=== PATIENT | male | born 1975 | race Caucasian/White ===

== ENCOUNTER 2021-03-09 09:52 | Inpatient (IN) | payer OTHER ==
[~2021-03-09] VITALS: Ht 172.7 cm; Wt 96.2 kg
[2021-03-09 12:03] LABS: BASOPHIL 0.9 % (0-2); EOSINOPHIL 1.2 % (0-5); HGB 19.5 g/dl (13.2-18.0); LYMPHOCYTE 22.9 % (15-48); MCH 31.8 pg (25.0-31.0); MCHC 35.5 g/dL (32.0-36.0); MCV 89.6 fL (78.0-100.0); MPV 10.9 fL (6.0-9.5); NEUTROPHIL 68.8 % (41-80); NRBC 0; PLT 318 K/uL (150-400); RBC 6.14 M/uL (4.70-6.00); RDW 11.5 % (11.5-14.0); WBC 9.3 K/uL (4.0-10.5)
[2021-03-09 12:16] LABS: ALBUMIN 4.4 g/dL (3.4-5.0); BILIRUBIN - TOTAL 0.9 mg/dL (0.2-1.0); BUN/CREAT RATIO (CALC) 23.1 RATIO; CREATININE 1.21 mg/dL (0.67-1.17); GLOBULIN (CALCULATION) 4.1 g/dL; POTASSIUM 5.2 mmol/L (3.5-5.1); TOTAL PROTEIN 8.5 g/dL (6.4-8.2)
[2021-03-09 13:48] LABS: CORONAVIRUS 2019 SARS-COV-2 NEGATIVE (NEGATIVE); INFLUENZA A NAA NEGATIVE (NEGATIVE)
[2021-03-09 13:51] LABS: BILIRUBIN NEGATIVE (NEGATIVE); BLOOD TRACE-INTACT Ery/uL (NEGATIVE); CLARITY CLEAR (CLEAR); COLOR YELLOW (YELLOW); GLUCOSE (U) 3+ mg/dL (NORMAL); LEUKOCYTES NEGATIVE Leu/uL (NEGATIVE); NITRITE NEGATIVE (NEGATIVE); PROTEIN NEGATIVE (NEGATIVE); SPECIFIC GRAVITY 1.015 (1.001-1.030); UROBILINOGEN 0.2 mg/dL (0.2-1.0); pH 5.5 (5.0-9.0)
[2021-03-09 14:02] LABS: SQUAMOUS EPITHELIAL CELLS RARE; URINARY RBC RARE
[2021-03-09] MEDS ORDERED: METFORMIN HCL500 MG PO (15:11)
[2021-03-09] MEDS ORDERED: CRESTOR10 M1 PO (15:12)
[2021-03-09] MEDS ORDERED: AMLODIPINE-BEN1 EAC4 PO (15:12)
[2021-03-09] MEDS ORDERED: HCTZ12.5 MG PO (15:13)
[2021-03-09] MEDS ORDERED: PRILOSEC20 MG PO (15:13)
[2021-03-09 15:43] LABS: MAGNESIUM 2.7 mg/dL (1.8-2.4)
[2021-03-09 17:01] LABS: BUN/CREAT RATIO (CALC) 22.4 RATIO; CREATININE 1.16 mg/dL (0.67-1.17); POTASSIUM 4.4 mmol/L (3.5-5.1)
[2021-03-09 21:30] LABS: BUN/CREAT RATIO (CALC) 23.3 RATIO; CREATININE 0.9 mg/dL (0.67-1.17); POTASSIUM 4.2 mmol/L (3.5-5.1)
[2021-03-10 06:12] LABS: BASOPHIL 0.8 % (0-2); EOSINOPHIL 3.1 % (0-5); HCT 40.4 % (42.0-52.0); HGB 14.6 g/dl (13.2-18.0); LYMPHOCYTE 37.3 % (15-48); MCH 31.7 pg (25.0-31.0); MCHC 36.1 g/dL (32.0-36.0); MCV 87.8 fL (78.0-100.0); MONOCYTE 5.8 % (0-12); MPV 10.6 fL (6.0-9.5); NEUTROPHIL 52.8 % (41-80); NRBC 0; PLT 224 K/uL (150-400); RDW 11.3 % (11.5-14.0); WBC 8.6 K/uL (4.0-10.5)
[2021-03-10 06:38] LABS: BUN/CREAT RATIO (CALC) 18.5 RATIO; CREATININE 0.92 mg/dL (0.67-1.17); MAGNESIUM 2.2 mg/dL (1.8-2.4); PHOSPHORUS 1.3 mg/dL (2.6-4.7); POTASSIUM 4.2 mmol/L (3.5-5.1)
--- NOTE | 2021-03-10 13:44 | NUR ---
03/10/21 Mr. العراقي, his girlfriend, and 2 of his 5 children (ages 9 and 5) share a home together. They are supported by the children's [facility] and [facility]. He owns his own mobile home and does not have a mortgage. He has a support system through his mother and girlfriend. - Mr. العراقي has a dx of diabetes. - Wood Smith is the PCP. - Mr. العراقي was provided with the following resources: [employer] application, food [employer], financial community resources, and community diabetic support / education.
[2021-03-11 06:18] LABS: BASOPHIL 0.7 % (0-2); HCT 36.3 % (42.0-52.0); HGB 12.9 g/dl (13.2-18.0); LYMPHOCYTE 40.5 % (15-48); MCH 31.8 pg (25.0-31.0); MCHC 35.5 g/dL (32.0-36.0); MCV 89.4 fL (78.0-100.0); MONOCYTE 6.6 % (0-12); MPV 10.5 fL (6.0-9.5); NEUTROPHIL 49.9 % (41-80); NRBC 0; PLT 182 K/uL (150-400); RBC 4.06 M/uL (4.70-6.00); RDW 11.3 % (11.5-14.0); WBC 7.1 K/uL (4.0-10.5)
[2021-03-11 06:44] LABS: BUN/CREAT RATIO (CALC) 16.5 RATIO; CREATININE 0.91 mg/dL (0.67-1.17); PHOSPHORUS 1.8 mg/dL (2.6-4.7); POTASSIUM 4.1 mmol/L (3.5-5.1)
--- NOTE | 2021-03-11 11:09 | NUR ---
PT HAD A ZOOM MEETING WITH [employer] SUPERVIS[employer] MAX FOSTER RN TODAY. SHE DID ANSWER A LOT OF QUESTIONS HE HAD ABOUT DIET AND NUTRITION. SHE ALSO PUT IN A CONSULT FOR H[employer] DECK [employer]OVER
[2021-03-11] MEDS ORDERED: HUMULIN R100 UNIT/2 SC (14:44)
[2021-03-11] MEDS ORDERED: HUMALOG100 UNIT/1 SC (14:44)
[2021-03-11] MEDS ORDERED: SEMGLEE100 UNIT/1 SC (14:44)
== END 2021-03-11 15:10 | disposition home or self-care (01) | DRG 638 ==
LOC: FER 09:52 → FICU 13:50
PROVIDERS: Emergency Medicine; Internal Medicine; Nurse Practitioner Family; ADMIT Internal Medicine
DX: E11.10 Type 2 diabetes mellitus with ketoacidosis without coma (principal); E87.1 Hypo-osmolality and hyponatremia; I10 Essential (primary) hypertension; E78.5 Hyperlipidemia, unspecified; Z20.822 Contact with and (suspected) exposure to COVID-19; K21.9 Gastro-esophageal reflux disease without esophagitis; J44.9 Chronic obstructive pulmonary disease, unspecified; Z88.5 Allergy status to narcotic agent; Z88.6 Allergy status to analgesic agent; Z79.84 Long term (current) use of oral hypoglycemic drugs; Z79.899 Other long term (current) drug therapy; Z83.3 Family history of diabetes mellitus
CPT/HCPCS: 36415; 36600; 74022; 80048; 80053; 81001; 82009; 82803; 82947; 82962; 83036; 83690; 83735; 84100; 84484; 85025; 93005; J1650; J1815; J3480; J7030; J7050; U0002